=== PATIENT | male | born 1965 | race Hispanic/Latino ===

== ENCOUNTER 2021-02-23 11:41 | Inpatient (IN) | payer OTHER ==
[~2021-02-23] VITALS: Ht 162.6 cm; Wt 112.9 kg
[2021-02-23] MEDS ORDERED: ACETAMINOPHEN 325 MG TAB PO ONE (12:00)
[2021-02-23] MEDS ORDERED: LACTATED RINGER'S 1,000 ML INJ ONE (12:00)
[2021-02-23 12:13] LABS: BASOPHILS % 0.2 % (0.0-1.0); HEMATOCRIT 43.9 % (38.2-49.6); HEMOGLOBIN 13.5 g/dL (14.0-18.0); LYMPHOCYTES # (AUTO) 1.1 (1.0-3.2); LYMPHOCYTES % 11.4 % (18.0-39.1); MEAN CORPUSCULAR HGB CONC 30.8 g/dL (31-35); MEAN CORPUSCULAR VOLUME 84.6 fL (81-99); MONOCYTES % 10.1 % (4.4-11.3); NEUTROPHILS # (AUTO) 7.4 (2.1-6.9); NEUTROPHILS % 77.6 % (38.7-80.0); PLATELET COUNT 247 x10e3/uL (140-360); RED BLOOD COUNT 5.19 x10e6/uL (4.3-5.7); RED CELL DISTRIBUTION WIDTH 14.7 % (11.7-14.4)
[2021-02-23 12:34] LABS: INR 0.99; PROTHROMBIN TIME 13.9 seconds (11.9-14.5)
[2021-02-23 12:43] LABS: ALBUMIN 3.5 g/dL (3.5-5.0); ALBUMIN/GLOBULIN RATIO 0.6 (0.8-2.0); ANION GAP 21.2 mmol/L (8-16); CALCIUM 9.2 mg/dL (8.4-10.2); CREATININE, SERUM 2.02 mg/dL (0.72-1.25); POTASSIUM 5.2 mmol/L (3.5-5.1)
[2021-02-23] MEDS: CEFTRIAXONE 2 GM in SODIUM CHLORIDE 0.9% 100 ML IV SCH (13:03)
[2021-02-23] MEDS: DEXAMETHASONE SOD PHOS 10 MG/1 ML VIAL IV SCH (13:08)
[2021-02-23] MEDS: ZINC SULFATE 50 MG CAP PO SCH (13:09)
[2021-02-23] MEDS: ASCORBIC ACID 500 MG TAB PO SCH (13:09)
[2021-02-23 13:11] LABS: FERRITIN 396.35 ng/mL (21.81-274.66)
[2021-02-23] MEDS ORDERED: SODIUM CHLORIDE 0.9% 50ML 50 ML ONE (13:21)
[2021-02-23] MEDS ORDERED: IOPAMIDOL 370 MG/ML 200 ML INFUS..BTL INJ ONE (13:21)
[2021-02-23] MEDS ORDERED: ACETAMINOPHEN 325 MG TAB PO PRN (15:30)
[2021-02-23] MEDS ORDERED: METOPROLOL SUCCINATE 25 MG TAB XL PO SCH (15:30)
[2021-02-23] MEDS ORDERED: ALLOPURINOL100 MG PO (16:06)
[2021-02-23] MEDS ORDERED: AMLODIPINE-OLM1 EAC2 PO (16:06)
[2021-02-23] MEDS: METOPROLOL SUCCINATE 25 MG TAB XL PO SCH ×2 (16:18→22:00)
[2021-02-23] MEDS ORDERED: SOD POLYSTYRENE SULFONATE SUSP 15 GM/60 ML BTL PO ONE (16:30)
[2021-02-23] MEDS ORDERED: SODIUM CHLORIDE 0.9% 1000ML 1,000 ML IV ONE (16:30)
[2021-02-23] MEDS ORDERED: THIAMINE HCL INJ 100 MG/ML 2ML VIAL IV ONE (16:30)
[2021-02-23] MEDS ORDERED: GUAIFENESIN/CODEINE 5 ML LIQD PO PRN (16:30)
[2021-02-23] MEDS ORDERED: ZOLPIDEM TARTRATE 5 MG TAB PO PRN (16:30)
[2021-02-23] MEDS ORDERED: REMDESIVIR 200MG 200 MG in SODIUM CHLORIDE 0.9% 100 ML IV ONE (16:30)
[2021-02-23] MEDS ORDERED: DEXTROSE 50% SYRINGE 50 ML IV PRN (16:30)
[2021-02-23] MEDS ORDERED: ENOXAPARIN 30 MG/0.3 ML SYR SC SCH (17:00)
[2021-02-23] MEDS: INSULIN REGULAR, HUMAN 100 UNIT/1 ML SQ SCH ×2 (17:13→21:40)
[2021-02-23 19:45] VITALS: BP 98/66
[2021-02-23 20:00] VITALS: BP 115/85
[2021-02-23 21:00] VITALS: BP 115/85
[2021-02-24] VITALS (8 sets, daily range): BP systolic 90–100; BP diastolic 61–69
[2021-02-24 06:01] LABS: ALBUMIN 2.8 g/dL (3.5-5.0); ALBUMIN/GLOBULIN RATIO 0.6 (0.8-2.0); CALCIUM 8.6 mg/dL (8.4-10.2); CHOL/HDL RATIO 3.5 (3.9-4.7); CREATININE, SERUM 1.82 mg/dL (0.72-1.25); MAGNESIUM 2.3 MG/DL (1.3-2.1); PHOSPHORUS 5.4 MG/DL (2.3-4.7)
[2021-02-24 06:44] LABS: BASOPHILS % 0.2 % (0.0-1.0); HEMATOCRIT 38.1 % (38.2-49.6); HEMOGLOBIN 11.6 g/dL (14.0-18.0); LYMPHOCYTES # (AUTO) 0.8 (1.0-3.2); LYMPHOCYTES % 11.9 % (18.0-39.1); MEAN CORPUSCULAR HEMOGLOBIN 25.9 pg (28-32); MEAN CORPUSCULAR HGB CONC 30.4 g/dL (31-35); MONOCYTES # (AUTO) 0.7 (0.2-0.8); MONOCYTES % 10.9 % (4.4-11.3); NEUTROPHILS # (AUTO) 4.8 (2.1-6.9); NEUTROPHILS % 75.9 % (38.7-80.0); PLATELET COUNT 233 x10e3/uL (140-360); RED BLOOD COUNT 4.48 x10e6/uL (4.3-5.7)
[2021-02-24] MEDS ORDERED: SODIUM CHLORIDE 0.9% 250ML 250 ML ONE (07:42)
[2021-02-24] MEDS: CEFTRIAXONE 2 GM in SODIUM CHLORIDE 0.9% 100 ML IV SCH (07:48)
[2021-02-24] MEDS: INSULIN REGULAR, HUMAN 100 UNIT/1 ML SQ SCH ×4 (07:48→21:03)
[2021-02-24] MEDS: DEXAMETHASONE SOD PHOS 10 MG/1 ML VIAL IV SCH (07:48)
[2021-02-24] MEDS: ASCORBIC ACID 500 MG TAB PO SCH ×2 (07:48→16:36)
[2021-02-24] MEDS: ZINC SULFATE 50 MG CAP PO SCH (07:48)
[2021-02-24] MEDS: FAMOTIDINE 20 MG TAB PO SCH (07:48)
[2021-02-24] MEDS: ENOXAPARIN SOD INJ 40 MG/0.4 ML SYR SC SCH (08:35)
[2021-02-24] MEDS: METOPROLOL SUCCINATE 25 MG TAB XL PO SCH ×2 (08:35→16:36)
[2021-02-24] MEDS ORDERED: ZINC SULFATE 50 MG CAP PO SCH (09:00)
[2021-02-24] MEDS ORDERED: CEFTRIAXONE 2 GM in SODIUM CHLORIDE 0.9% 100 ML IV SCH (09:00)
[2021-02-24] MEDS ORDERED: DEXTROSE 50% SYRINGE 50 ML IV PRN (11:45)
[2021-02-24] MEDS ORDERED: SODIUM CHLORIDE 0.9% 500ML 500 ML IV ONE (15:30)
[2021-02-24] MEDS: REMDESIVIR 100MG 100 MG in SODIUM CHLORIDE 0.9% 100 ML IV SCH (16:35)
[2021-02-25] VITALS (10 sets, daily range): BP systolic 94–115; BP diastolic 59–85
[2021-02-25] MEDS: INSULIN REGULAR, HUMAN 100 UNIT/1 ML SQ SCH ×4 (07:54→21:00)
[2021-02-25] MEDS: DEXAMETHASONE SOD PHOS 10 MG/1 ML VIAL IV SCH (09:01)
[2021-02-25] MEDS: ENOXAPARIN SOD INJ 40 MG/0.4 ML SYR SC SCH (09:02)
[2021-02-25] MEDS: CEFTRIAXONE 2 GM in SODIUM CHLORIDE 0.9% 100 ML IV SCH (09:02)
[2021-02-25] MEDS: ZINC SULFATE 50 MG CAP PO SCH (09:02)
[2021-02-25] MEDS: FAMOTIDINE 20 MG TAB PO SCH (09:02)
[2021-02-25] MEDS: ASCORBIC ACID 500 MG TAB PO SCH ×2 (09:02→17:08)
[2021-02-25] MEDS: METOPROLOL SUCCINATE 25 MG TAB XL PO SCH ×2 (09:02→17:08)
[2021-02-25] MEDS ORDERED: SODIUM CHLORIDE 0.9% 100 ML ONE (09:12)
[2021-02-25] MEDS: REMDESIVIR 100MG 100 MG in SODIUM CHLORIDE 0.9% 100 ML IV SCH (17:08)
[2021-02-26] VITALS (8 sets, daily range): BP systolic 94–114; BP diastolic 69–81
[2021-02-26 05:08] LABS: BASOPHILS % 0.1 % (0.0-1.0); HEMATOCRIT 37.7 % (38.2-49.6); HEMOGLOBIN 11.4 g/dL (14.0-18.0); LYMPHOCYTES # (AUTO) 1.5 (1.0-3.2); LYMPHOCYTES % 10.8 % (18.0-39.1); MEAN CORPUSCULAR HEMOGLOBIN 25.9 pg (28-32); MEAN CORPUSCULAR HGB CONC 30.2 g/dL (31-35); MEAN CORPUSCULAR VOLUME 85.7 fL (81-99); MONOCYTES # (AUTO) 1.4 (0.2-0.8); MONOCYTES % 10.1 % (4.4-11.3); NEUTROPHILS % 77.9 % (38.7-80.0); PLATELET COUNT 274 x10e3/uL (140-360); RED CELL DISTRIBUTION WIDTH 14.8 % (11.7-14.4)
[2021-02-26 05:36] LABS: ALBUMIN 2.7 g/dL (3.5-5.0); ALBUMIN/GLOBULIN RATIO 0.6 (0.8-2.0); ANION GAP 16.9 mmol/L (8-16); CALCIUM 8.8 mg/dL (8.4-10.2); CREATININE, SERUM 0.93 mg/dL (0.72-1.25); POTASSIUM 4.9 mmol/L (3.5-5.1)
[2021-02-26] MEDS: INSULIN REGULAR, HUMAN 100 UNIT/1 ML SQ SCH ×4 (07:30→21:22)
[2021-02-26] MEDS: DEXAMETHASONE SOD PHOS 10 MG/1 ML VIAL IV SCH (09:25)
[2021-02-26] MEDS: FAMOTIDINE 20 MG TAB PO SCH (09:25)
[2021-02-26] MEDS: BARICITINIB 2 MG TABLET PO SCH (09:25)
[2021-02-26] MEDS: ASCORBIC ACID 500 MG TAB PO SCH ×2 (09:26→17:53)
[2021-02-26] MEDS: METOPROLOL SUCCINATE 25 MG TAB XL PO SCH ×2 (09:26→17:53)
[2021-02-26] MEDS: ZINC SULFATE 50 MG CAP PO SCH (09:26)
[2021-02-26] MEDS: ENOXAPARIN SOD INJ 40 MG/0.4 ML SYR SC SCH (09:26)
[2021-02-26] MEDS: REMDESIVIR 100MG 100 MG in SODIUM CHLORIDE 0.9% 100 ML IV SCH (17:52)
[2021-02-27] VITALS (7 sets, daily range): BP systolic 102–152; BP diastolic 60–94
[2021-02-27 04:55] LABS: BASOPHILS % 0.2 % (0.0-1.0); HEMATOCRIT 36.8 % (38.2-49.6); HEMOGLOBIN 11.4 g/dL (14.0-18.0); LYMPHOCYTES # (AUTO) 1.6 (1.0-3.2); LYMPHOCYTES % 13.8 % (18.0-39.1); MEAN CORPUSCULAR HEMOGLOBIN 25.9 pg (28-32); MEAN CORPUSCULAR VOLUME 83.6 fL (81-99); MONOCYTES # (AUTO) 1.1 (0.2-0.8); MONOCYTES % 9.6 % (4.4-11.3); NEUTROPHILS # (AUTO) 8.3 (2.1-6.9); NEUTROPHILS % 73.9 % (38.7-80.0); PLATELET COUNT 330 x10e3/uL (140-360); RED CELL DISTRIBUTION WIDTH 14.5 % (11.7-14.4)
[2021-02-27 05:15] LABS: ALBUMIN 2.7 g/dL (3.5-5.0); ALBUMIN/GLOBULIN RATIO 0.6 (0.8-2.0); ANION GAP 15.8 mmol/L (8-16); CALCIUM 8.9 mg/dL (8.4-10.2); CREATININE, SERUM 0.85 mg/dL (0.72-1.25); POTASSIUM 4.8 mmol/L (3.5-5.1)
[2021-02-27 06:03] LABS: LYMPHOCYTES % (MANUAL) 12 % (19-48); MONOCYTES % (MANUAL) 8 % (3.4-9.0); NEUTROPHILS % (MANUAL) 77 % (40-74); PLATELET ESTIMATE ADEQUATE; PLATELET MORPHOLOGY COMMENT NORMAL; RBC MORPHOLOGY COMMENT NORMAL
[2021-02-27] MEDS: ASCORBIC ACID 500 MG TAB PO SCH ×2 (08:24→17:07)
[2021-02-27] MEDS: ENOXAPARIN SOD INJ 40 MG/0.4 ML SYR SC SCH (08:24)
[2021-02-27] MEDS: DEXAMETHASONE SOD PHOS 10 MG/1 ML VIAL IV SCH (08:24)
[2021-02-27] MEDS: FAMOTIDINE 20 MG TAB PO SCH (08:24)
[2021-02-27] MEDS: ZINC SULFATE 50 MG CAP PO SCH (08:24)
[2021-02-27] MEDS: BARICITINIB 2 MG TABLET PO SCH (08:24)
[2021-02-27] MEDS: INSULIN REGULAR, HUMAN 100 UNIT/1 ML SQ SCH ×4 (08:26→22:28)
[2021-02-27] MEDS: METOPROLOL SUCCINATE 25 MG TAB XL PO SCH ×2 (08:26→17:07)
[2021-02-27] MEDS: REMDESIVIR 100MG 100 MG in SODIUM CHLORIDE 0.9% 100 ML IV SCH (17:07)
[2021-02-28] VITALS (8 sets, daily range): BP systolic 91–133; BP diastolic 62–84
[2021-02-28] MEDS: INSULIN REGULAR, HUMAN 100 UNIT/1 ML SQ SCH ×4 (07:30→20:44)
[2021-02-28 08:40] LABS: HEMATOCRIT 39.2 % (38.2-49.6); HEMOGLOBIN 11.9 g/dL (14.0-18.0); MEAN CORPUSCULAR HEMOGLOBIN 25.9 pg (28-32); MEAN CORPUSCULAR HGB CONC 30.4 g/dL (31-35); MEAN CORPUSCULAR VOLUME 85.2 fL (81-99); PLATELET COUNT 415 x10e3/uL (140-360); RED CELL DISTRIBUTION WIDTH 14.5 % (11.7-14.4)
[2021-02-28 09:12] LABS: ALBUMIN 2.9 g/dL (3.5-5.0); ALBUMIN/GLOBULIN RATIO 0.6 (0.8-2.0); ANION GAP 18.4 mmol/L (8-16); CALCIUM 9.3 mg/dL (8.4-10.2); CREATININE, SERUM 1.13 mg/dL (0.72-1.25); POTASSIUM 4.4 mmol/L (3.5-5.1)
[2021-02-28] MEDS: BARICITINIB 2 MG TABLET PO SCH (09:26)
[2021-02-28] MEDS: FAMOTIDINE 20 MG TAB PO SCH (09:26)
[2021-02-28] MEDS: DEXAMETHASONE SOD PHOS 10 MG/1 ML VIAL IV SCH (09:26)
[2021-02-28] MEDS: ASCORBIC ACID 500 MG TAB PO SCH ×2 (09:27→16:43)
[2021-02-28] MEDS: METOPROLOL SUCCINATE 25 MG TAB XL PO SCH ×2 (09:27→16:43)
[2021-02-28] MEDS: ENOXAPARIN SOD INJ 40 MG/0.4 ML SYR SC SCH (09:27)
[2021-02-28] MEDS: ZINC SULFATE 50 MG CAP PO SCH (09:27)
[2021-02-28 15:02] LABS: CLARITY,URINE HAZY (CLEAR); COLOR,URINE YELLOW (YELLOW); KETONES,URINE NEGATIVE (NEGATIVE); LEUKOCYTE ESTERASE ,URINE NEGATIVE (NEGATIVE); NITRITE,URINE NEGATIVE (NEGATIVE); PROTEIN,URINE DIPSTICK TRACE (NEGATIVE)
[2021-02-28 15:03] LABS: BACTERIA,URINE FEW /HPF; EPITHELIAL CELLS,URINE FEW /LPF; RBC,URINE 0-5 /HPF (0-5); URINE UROBILINOGEN 0.2 mg/dL (0.2 - 1); WBC,URINE (MAN) 0-5 /HPF (0-5)
[2021-03-01] VITALS (8 sets, daily range): BP systolic 103–120; BP diastolic 61–86
[2021-03-01 06:26] LABS: BASOPHILS # (AUTO) 0.1 (0.0-0.1); BASOPHILS % 0.3 % (0.0-1.0); EOSINOPHILS % 0.1 % (0.0-6.0); HEMATOCRIT 39.3 % (38.2-49.6); HEMOGLOBIN 12.3 g/dL (14.0-18.0); LYMPHOCYTES # (AUTO) 1.6 (1.0-3.2); MEAN CORPUSCULAR HEMOGLOBIN 25.9 pg (28-32); MEAN CORPUSCULAR HGB CONC 31.3 g/dL (31-35); MEAN CORPUSCULAR VOLUME 82.9 fL (81-99); MONOCYTES # (AUTO) 1.6 (0.2-0.8); MONOCYTES % 10.4 % (4.4-11.3); NEUTROPHILS # (AUTO) 11.7 (2.1-6.9); NEUTROPHILS % 74.9 % (38.7-80.0); PLATELET COUNT 427 x10e3/uL (140-360); RED BLOOD COUNT 4.74 x10e6/uL (4.3-5.7); RED CELL DISTRIBUTION WIDTH 14.4 % (11.7-14.4)
[2021-03-01 07:09] LABS: ALBUMIN 2.8 g/dL (3.5-5.0); ALBUMIN/GLOBULIN RATIO 0.6 (0.8-2.0); ANION GAP 16.5 mmol/L (8-16); CALCIUM 9.5 mg/dL (8.4-10.2); CREATININE, SERUM 0.92 mg/dL (0.72-1.25); POTASSIUM 4.5 mmol/L (3.5-5.1)
[2021-03-01] MEDS: INSULIN REGULAR, HUMAN 100 UNIT/1 ML SQ SCH ×4 (07:30→21:26)
[2021-03-01] MEDS: ASCORBIC ACID 500 MG TAB PO SCH ×2 (08:53→16:27)
[2021-03-01] MEDS: DEXAMETHASONE SOD PHOS 10 MG/1 ML VIAL IV SCH (08:53)
[2021-03-01] MEDS: METOPROLOL SUCCINATE 25 MG TAB XL PO SCH ×2 (08:53→16:27)
[2021-03-01] MEDS: ENOXAPARIN SOD INJ 40 MG/0.4 ML SYR SC SCH (08:53)
[2021-03-01] MEDS: ZINC SULFATE 50 MG CAP PO SCH (08:53)
[2021-03-01] MEDS: FAMOTIDINE 20 MG TAB PO SCH (08:53)
[2021-03-01] MEDS: BARICITINIB 2 MG TABLET PO SCH (09:00)
[2021-03-01] MEDS ORDERED: ALBUTEROL SULFATE HFA 8GM INHALATION AEROSOL INH PRN (09:45)
[2021-03-02] VITALS (7 sets, daily range): BP systolic 110–124; BP diastolic 79–89
[2021-03-02] MEDS: INSULIN REGULAR, HUMAN 100 UNIT/1 ML SQ SCH ×4 (07:59→22:07)
[2021-03-02] MEDS: DEXAMETHASONE SOD PHOS 10 MG/1 ML VIAL IV SCH (08:00)
[2021-03-02] MEDS: ENOXAPARIN SOD INJ 40 MG/0.4 ML SYR SC SCH (08:01)
[2021-03-02] MEDS: FAMOTIDINE 20 MG TAB PO SCH (08:01)
[2021-03-02] MEDS: METOPROLOL SUCCINATE 25 MG TAB XL PO SCH ×2 (08:01→17:04)
[2021-03-02] MEDS: ASCORBIC ACID 500 MG TAB PO SCH ×2 (08:01→17:03)
[2021-03-02] MEDS: ZINC SULFATE 50 MG CAP PO SCH (08:01)
[2021-03-02] MEDS: BARICITINIB 2 MG TABLET PO SCH (08:01)
[2021-03-03] VITALS (9 sets, daily range): BP systolic 97–119; BP diastolic 65–93
[2021-03-03 04:47] LABS: BASOPHILS % 0.3 % (0.0-1.0); EOSINOPHILS % 0.1 % (0.0-6.0); LYMPHOCYTES # (AUTO) 1.3 (1.0-3.2); LYMPHOCYTES % 9.2 % (18.0-39.1); MEAN CORPUSCULAR HEMOGLOBIN 25.9 pg (28-32); MEAN CORPUSCULAR HGB CONC 30.8 g/dL (31-35); MEAN CORPUSCULAR VOLUME 84.2 fL (81-99); MONOCYTES # (AUTO) 1.3 (0.2-0.8); MONOCYTES % 9.4 % (4.4-11.3); NEUTROPHILS # (AUTO) 10.5 (2.1-6.9); NEUTROPHILS % 75.9 % (38.7-80.0); PLATELET COUNT 530 x10e3/uL (140-360); RED BLOOD COUNT 4.63 x10e6/uL (4.3-5.7); RED CELL DISTRIBUTION WIDTH 14.3 % (11.7-14.4)
[2021-03-03 05:10] LABS: ANION GAP 14.4 mmol/L (8-16); CALCIUM 9.4 mg/dL (8.4-10.2); CREATININE, SERUM 1.09 mg/dL (0.72-1.25); POTASSIUM 4.4 mmol/L (3.5-5.1)
[2021-03-03] MEDS: FAMOTIDINE 20 MG TAB PO SCH (07:58)
[2021-03-03] MEDS: ASCORBIC ACID 500 MG TAB PO SCH ×2 (07:58→17:19)
[2021-03-03] MEDS: ZINC SULFATE 50 MG CAP PO SCH (07:58)
[2021-03-03] MEDS: BARICITINIB 2 MG TABLET PO SCH (07:58)
[2021-03-03] MEDS: METOPROLOL SUCCINATE 25 MG TAB XL PO SCH ×2 (07:58→17:19)
[2021-03-03] MEDS: INSULIN REGULAR, HUMAN 100 UNIT/1 ML SQ SCH ×4 (07:59→21:00)
[2021-03-03] MEDS: ENOXAPARIN SOD INJ 40 MG/0.4 ML SYR SC SCH (17:19)
[2021-03-04] VITALS (9 sets, daily range): BP systolic 101–109; BP diastolic 72–82
[2021-03-04 04:57] LABS: BASOPHILS # (AUTO) 0.1 (0.0-0.1); BASOPHILS % 0.5 % (0.0-1.0); EOSINOPHILS # (AUTO) 0.1 (0.0-0.4); EOSINOPHILS % 1.1 % (0.0-6.0); HEMATOCRIT 40.5 % (38.2-49.6); HEMOGLOBIN 12.5 g/dL (14.0-18.0); LYMPHOCYTES # (AUTO) 2.5 (1.0-3.2); LYMPHOCYTES % 22.4 % (18.0-39.1); MEAN CORPUSCULAR HEMOGLOBIN 26.1 pg (28-32); MEAN CORPUSCULAR HGB CONC 30.9 g/dL (31-35); MEAN CORPUSCULAR VOLUME 84.6 fL (81-99); MONOCYTES # (AUTO) 1.4 (0.2-0.8); MONOCYTES % 12.3 % (4.4-11.3); NEUTROPHILS # (AUTO) 6.4 (2.1-6.9); NEUTROPHILS % 58.1 % (38.7-80.0); PLATELET COUNT 494 x10e3/uL (140-360); RED BLOOD COUNT 4.79 x10e6/uL (4.3-5.7); RED CELL DISTRIBUTION WIDTH 14.4 % (11.7-14.4)
[2021-03-04 05:18] LABS: ALBUMIN 2.7 g/dL (3.5-5.0); ALBUMIN/GLOBULIN RATIO 0.6 (0.8-2.0); CREATININE, SERUM 0.94 mg/dL (0.72-1.25)
[2021-03-04] MEDS: INSULIN REGULAR, HUMAN 100 UNIT/1 ML SQ SCH ×4 (07:30→20:33)
[2021-03-04] MEDS ORDERED: LACTATED RINGER'S 1,000 ML INJ ONE (08:45)
[2021-03-04] MEDS: ZINC SULFATE 50 MG CAP PO SCH (08:51)
[2021-03-04] MEDS: BARICITINIB 2 MG TABLET PO SCH (08:51)
[2021-03-04] MEDS: FAMOTIDINE 20 MG TAB PO SCH (08:51)
[2021-03-04] MEDS: ASCORBIC ACID 500 MG TAB PO SCH ×2 (08:52→19:08)
[2021-03-04] MEDS: METOPROLOL SUCCINATE 25 MG TAB XL PO SCH ×2 (08:52→19:09)
[2021-03-04 09:08] LABS: BAND NEUTROPHILS % (MANUAL) 1 %; LYMPHOCYTES % (MANUAL) 20 % (19-48); MONOCYTES % (MANUAL) 13 % (3.4-9.0); NEUTROPHILS % (MANUAL) 66 % (40-74); PLATELET ESTIMATE ADEQUATE
[2021-03-04 09:09] LABS: PLATELET MORPHOLOGY COMMENT NORMAL; RBC MORPHOLOGY COMMENT NORMAL
[2021-03-04] MEDS: ENOXAPARIN SOD INJ 40 MG/0.4 ML SYR SC SCH (19:09)
[2021-03-05] VITALS (8 sets, daily range): BP systolic 112–123; BP diastolic 78–86
[2021-03-05 04:58] LABS: BASOPHILS # (AUTO) 0.1 (0.0-0.1); BASOPHILS % 0.6 % (0.0-1.0); EOSINOPHILS # (AUTO) 0.2 (0.0-0.4); EOSINOPHILS % 1.5 % (0.0-6.0); HEMATOCRIT 38.7 % (38.2-49.6); HEMOGLOBIN 11.8 g/dL (14.0-18.0); LYMPHOCYTES # (AUTO) 2.4 (1.0-3.2); LYMPHOCYTES % 23.8 % (18.0-39.1); MEAN CORPUSCULAR HEMOGLOBIN 26.2 pg (28-32); MEAN CORPUSCULAR HGB CONC 30.5 g/dL (31-35); MEAN CORPUSCULAR VOLUME 85.8 fL (81-99); MONOCYTES # (AUTO) 1.1 (0.2-0.8); MONOCYTES % 10.8 % (4.4-11.3); NEUTROPHILS # (AUTO) 5.7 (2.1-6.9); NEUTROPHILS % 57.3 % (38.7-80.0); PLATELET COUNT 522 x10e3/uL (140-360); RED BLOOD COUNT 4.51 x10e6/uL (4.3-5.7); RED CELL DISTRIBUTION WIDTH 14.6 % (11.7-14.4)
[2021-03-05 05:35] LABS: ALBUMIN 2.7 g/dL (3.5-5.0); ALBUMIN/GLOBULIN RATIO 0.7 (0.8-2.0); ANION GAP 13.8 mmol/L (8-16); CALCIUM 8.6 mg/dL (8.4-10.2); CREATININE, SERUM 0.84 mg/dL (0.72-1.25); POTASSIUM 3.8 mmol/L (3.5-5.1)
[2021-03-05] MEDS: INSULIN REGULAR, HUMAN 100 UNIT/1 ML SQ SCH ×4 (07:30→20:23)
[2021-03-05] MEDS: METOPROLOL SUCCINATE 25 MG TAB XL PO SCH ×2 (08:06→16:43)
[2021-03-05] MEDS: ASCORBIC ACID 500 MG TAB PO SCH ×2 (08:06→16:43)
[2021-03-05] MEDS: FAMOTIDINE 20 MG TAB PO SCH (08:06)
[2021-03-05] MEDS: BARICITINIB 2 MG TABLET PO SCH (08:06)
[2021-03-05] MEDS: ZINC SULFATE 50 MG CAP PO SCH (08:06)
[2021-03-05 09:02] LABS: LYMPHOCYTES % (MANUAL) 12 % (19-48); MONOCYTES % (MANUAL) 10 % (3.4-9.0); NEUTROPHILS % (MANUAL) 78 % (40-74); PLATELET ESTIMATE SLIGHTLY INCREASED; PLATELET MORPHOLOGY COMMENT NORMAL; RBC MORPHOLOGY COMMENT NORMAL
[2021-03-05] MEDS: ENOXAPARIN SOD INJ 40 MG/0.4 ML SYR SC SCH (16:43)
[2021-03-06 00:13] VITALS: BP 121/80
[2021-03-06 04:20] VITALS: BP 134/92
[2021-03-06 05:00] LABS: BASOPHILS % 0.4 % (0.0-1.0); EOSINOPHILS # (AUTO) 0.1 (0.0-0.4); EOSINOPHILS % 0.9 % (0.0-6.0); HEMATOCRIT 39.8 % (38.2-49.6); HEMOGLOBIN 11.8 g/dL (14.0-18.0); LYMPHOCYTES # (AUTO) 1.8 (1.0-3.2); LYMPHOCYTES % 16.9 % (18.0-39.1); MEAN CORPUSCULAR HEMOGLOBIN 26.2 pg (28-32); MEAN CORPUSCULAR HGB CONC 29.6 g/dL (31-35); MEAN CORPUSCULAR VOLUME 88.4 fL (81-99); MONOCYTES # (AUTO) 1.2 (0.2-0.8); MONOCYTES % 10.8 % (4.4-11.3); NEUTROPHILS % 66.2 % (38.7-80.0); PLATELET COUNT 440 x10e3/uL (140-360); RED CELL DISTRIBUTION WIDTH 14.6 % (11.7-14.4)
[2021-03-06 05:29] LABS: ALBUMIN 2.7 g/dL (3.5-5.0); ALBUMIN/GLOBULIN RATIO 0.7 (0.8-2.0); ANION GAP 14.2 mmol/L (8-16); CALCIUM 8.8 mg/dL (8.4-10.2); CREATININE, SERUM 0.82 mg/dL (0.72-1.25); POTASSIUM 4.2 mmol/L (3.5-5.1)
[2021-03-06] MEDS: INSULIN REGULAR, HUMAN 100 UNIT/1 ML SQ SCH ×2 (07:17→12:30)
[2021-03-06 07:58] VITALS: BP 116/83
[2021-03-06] MEDS: METOPROLOL SUCCINATE 25 MG TAB XL PO SCH (08:00)
[2021-03-06] MEDS: FAMOTIDINE 20 MG TAB PO SCH (08:00)
[2021-03-06] MEDS: BARICITINIB 2 MG TABLET PO SCH (08:00)
[2021-03-06] MEDS: ASCORBIC ACID 500 MG TAB PO SCH (08:01)
[2021-03-06] MEDS: ZINC SULFATE 50 MG CAP PO SCH (08:01)
[2021-03-06 08:07] VITALS: BP 116/83
[2021-03-06] MEDS ORDERED: TOPROL XL25 MG PO (12:09)
[2021-03-06] MEDS ORDERED: VENTOLIN HFA18 GM INH (12:09)
[2021-03-06] MEDS ORDERED: ASCORBIC ACID500 MG PO (12:09)
[2021-03-06] MEDS ORDERED: ACETAMINOPHEN325 M1 PO (12:09)
[2021-03-06] MEDS ORDERED: Zinc Sulfate PO (12:09)
[2021-03-06 14:16] VITALS: BP 123/72
== END 2021-03-06 15:30 | disposition home or self-care (01) | DRG 871 ==
LOC: ER 11:49 → ERHOLD 13:36 → IMCU 18:25
PROVIDERS: ADMIT Internal Medicine; ATTEND Internal Medicine
PROC: 3E0333Z Introduction of Anti-inflammatory into Peripheral Vein, Percutaneous Approach (ICD-10-PCS; principal; 2021-02-23)
PROC: XW033E5 Introduction of Remdesivir Anti-infective into Peripheral Vein, Percutaneous Approach, New Technology Group 5 (ICD-10-PCS; 2021-02-23)
DX: A41.89 Other specified sepsis (principal); U07.1 COVID-19; J12.82 Pneumonia due to coronavirus disease 2019; J96.01 Acute respiratory failure with hypoxia; N17.9 Acute kidney failure, unspecified; Z68.41 Body mass index [BMI] 40.0-44.9, adult; E87.2 Acidosis; Z98.84 Bariatric surgery status; Z88.8 Allergy status to other drugs, medicaments and biological substances; E87.5 Hyperkalemia; E11.65 Type 2 diabetes mellitus with hyperglycemia; E66.01 Morbid (severe) obesity due to excess calories; M10.9 Gout, unspecified; I10 Essential (primary) hypertension
CPT/HCPCS: 36415; 71045; 71260; 76770; 80048; 80053; 80061; 81001; 82728; 82948; 83036; 83605; 83735; 84100; 85007; 85025; 85027; 85379; 85610; 86141; 87040; 93005; 94799; 96372; 99251; 99284; J0456; J0696; J1100; J1650; J1817; J3411; J7040; J7050; J7121; Q9967; U0002